=== PATIENT | female | born 1990 | race Caucasian/White ===

== ENCOUNTER 2016-04-06 08:41 | Inpatient (IN) | payer OTHER ==
[~2016-04-06] VITALS: Ht 157.5 cm; Wt 93.2 kg
[~2016-04-06 08:41] MED LIST: ACET-1256 PO; ONDA4TAB10 SL; PRENTAB26 PO
[2016-04-07] MEDS ORDERED: LACTATED RINGER'S 1000ML 1,000 ML IV PRN (09:42)
[2016-04-07] MEDS ORDERED: ONDANSETRON INJ 2 MG/ML 2 ML VIAL IV PRN (09:45)
[2016-04-07] MEDS ORDERED: DINOPROSTONE 10 MG INSERT PV ONE (10:00)
[2016-04-07] MEDS: LACTATED RINGER'S 1000ML 1,000 ML IV SCH ×2 (10:04→17:01)
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
[2016-04-07 10:41] LABS: MEAN CELL VOLUME 87.4 fL (80-100); MEAN CORPUSCULAR HEMOGLOBIN 29.4 pg (25-34); MEAN CORPUSCULAR HGB CONC 33.6 g/dl (32-36); MEAN PLATELET VOLUME 10.9 fL (7.4-10.4); PLATELET COUNT 270 K/uL (130-400); RED BLOOD COUNT 4.12 M/uL (4.2-5.4); WHITE BLOOD COUNT 19.14 K/uL (4.8-10.8)
[2016-04-07 14:24] VITALS: Ht 157.5 cm; Wt 93.2 kg
[2016-04-08] MEDS ORDERED: LACTATED RINGER'S 1000ML 500 ML IV PRN ×2 (00:57→05:10)
[2016-04-08] MEDS ORDERED: BUTORPHANOL TARTRATE 1 MG/ML VIAL IV PRN (01:00)
[2016-04-08] MEDS ORDERED: OXYTOCIN 30 UNITS/500ML NSS IV PRN ×2 (01:00→17:30)
[2016-04-08] MEDS: LACTATED RINGER'S 1000ML 1,000 ML IV SCH ×3 (01:05→15:48)
[2016-04-08] MEDS ORDERED: EpHEDrine SULFATE INJ 50 MG/ML AMP ONE (04:20)
[2016-04-08] MEDS ORDERED: BUPIVACAINE 0.25% 30 ML VIAL ONE (04:20)
[2016-04-08] MEDS ORDERED: FENTANYL 2MCG/ML ROPIV 1.25MG/ML 100ML BAG EPI ONE (04:20)
[2016-04-08] MEDS ORDERED: FENTANYL CITRATE INJ 50 MCG/1 ML 2 ML VIAL ONE (04:21)
[2016-04-08] MEDS ORDERED: NALBUPHINE HCL INJ 10 MG/ML AMP IV PRN (05:15)
[2016-04-08] MEDS ORDERED: ONDANSETRON INJ 2 MG/ML 2 ML VIAL IV PRN (05:15)
[2016-04-08] MEDS ORDERED: DiphenhydrAMINE HCL 50 MG/ML VIAL IV PRN (05:15)
[2016-04-08] MEDS ORDERED: EpHEDrine SULFATE INJ 50 MG/ML AMP IV PRN (05:15)
[2016-04-08] MEDS ORDERED: NALOXONE HCL INJ 0.4 MG/1 ML VIAL/CARP IV PRN (05:15)
[2016-04-08] MEDS: FENTANYL 2MCG/ML ROPIV 1.25MG/ML 100ML BAG EPI PRN ×2 (07:10→12:42)
--- NOTE | 2016-04-08 07:58 | Progress Note ---
Progress Note cervix /-3 FHT Cat 1 continue oxytocin
--- NOTE | 2016-04-08 12:40 | Progress Note ---
Progress Note CERVIX /-3 T Cat 1
--- NOTE | 2016-04-08 15:30 | Progress Note ---
Progress Note cervix fully dilated/-1 FHT Cat 1
[2016-04-08] MEDS ORDERED: SUPERCREAM 0.870 % 15GM JAR EXT PRN (17:15)
[2016-04-08] MEDS ORDERED: MEASLES, MUMPS & RUBELLA VIRUS VIAL SQ. ONE (17:15)
[2016-04-08] MEDS ORDERED: ACETAMINOPHEN/CODEINE 300/30MG TAB PO PRN (17:15)
[2016-04-08] MEDS ORDERED: OXYCODONE/ACETAMINOPHEN 5-325 TAB PO PRN (17:15)
[2016-04-08] MEDS ORDERED: DIPHTHERIA/TETANUS/PERTUSSIS 0.5 ML SYR/VIAL IM. ONE (17:15)
[2016-04-08] MEDS ORDERED: ACETAMINOPHEN 325 MG TAB PO PRN (17:15)
[2016-04-08] MEDS ORDERED: HYDROCORTISONE ACETATE 25 MG SUPP PR PRN (17:15)
[2016-04-08] MEDS ORDERED: LANOLIN OINT EXT PRN ×2 (17:15)
--- NOTE | 2016-04-08 17:15 | Progress Note ---
Progress Note Delivery Note live male over intact perineum with CANx1 reduced at delivery. Apgars 8/9 with weight pending. Delayed cord clamping followed by cord blood and spontaneous delivery of intact placenta. Small 1st degree vaginal laceration repaired with 3/0 Vicryl suture. EBL 200 ml. Final sponge, instrument and needle count are correct. Mom and baby stable.
[2016-04-08] MEDS ORDERED: LACTATED RINGER'S 1000ML 1,000 ML IV SCH (18:00)
--- NOTE | 2016-04-08 18:59 | Anesthesiology Progress Note ---
Anesthesia Post Op Note Date & Time Apr 08, 2016 at 18:58 Vital Signs Pain Intensity: 0.0 Notes Mental Status: alert / awake / arousable, participated in evaluation Pt Amnestic to Procedure: Yes Nausea / Vomiting: adequately controlled Pain: adequately controlled Airway Patency, RR, SpO2: stable & adequate BP & HR: stable & adequate Hydration State: stable & adequate Anesthetic Complications: no major complications apparent
[2016-04-08] MEDS: IBUPROFEN 600 MG TAB PO PRN (19:56)
[2016-04-08 20:00] VITALS: BP 124/80; PULSE 95; TEMP 36.8; O2SAT 98
[2016-04-08] MEDS: ACETAMINOPHEN/CODEINE 300/30MG TAB PO PRN (21:25)
[2016-04-09 00:26] VITALS: BP 118/74; PULSE 91; TEMP 36.6
[2016-04-09] MEDS: IBUPROFEN 600 MG TAB PO PRN ×5 (00:26→23:07)
[2016-04-09] MEDS: BENZOCAINE 20% AER SPR 82.5 GM CAN EXT PRN (04:06)
[2016-04-09 04:16] VITALS: BP 113/71; PULSE 75; TEMP 36.9
[2016-04-09] MEDS: ACETAMINOPHEN/CODEINE 300/30MG TAB PO PRN ×2 (04:17→23:08)
[2016-04-09 07:44] LABS: HEMATOCRIT 33.7 % (37-47)
[2016-04-09 07:45] VITALS: BP 117/70; PULSE 74; TEMP 36.4
--- NOTE | 2016-04-09 08:33 | OB/GYN Progress Note ---
FOOD SERVICES COORDINATOR Progress Note Date of Service Apr 09, 2016. Subjective conversation w/ patient, physical exam Ambulation: ambulating normally Voiding: no voiding problems Passing Gas: Yes Diet Tolerance: Regular Diet Lochia: Moderate Feeding Type: Breast Feeding Pain: 2/10 Notes: Doing well. Pain is mostly in her back but relieved with pain medicine. Ambulating without difficulty. Lochia moderate. without difficulty. Objective Vital Signs Date Time Temp Pulse Resp B/P Pulse Ox O2 Delivery O2 Flow Rate FiO2 04/09/16 04:16 36.9 75 18 113/71 Room Air 04/09/16 04:16 36.9 75 18 113/71 Room Air 04/09/16 00:26 Room Air 04/09/16 00:26 36.6 91 18 118/74 Room Air 04/09/16 00:26 36.6 91 18 118/74 Room Air 04/09/16 00:26 Room Air 04/08/16 20:00 98 Room Air 04/08/16 20:00 36.8 95 18 124/80 98 Room Air 04/08/16 20:00 36.8 95 18 124/80 98 Room Air 04/08/16 20:00 98 Room Air Physical Exam General Appearance: WELL-APPEARING Respiratory/Chest: chest non-tender, lungs clear Cardiovascular: regular rate, rhythm Abdomen: normal bowel sounds, soft Fundus: Firm Extremities: normal range of motion, non-tender, no calf tenderness Laboratory Results Last 24 Hours Test 04/09/16 07:30 Hemoglobin 10.9 g/dL Hematocrit 33.7 % Assessment and Plan Post- Day Number: 1 Continue Routine Care: -Continue routine care -Anticipate d/c home tomorrow AM
[2016-04-09] MEDS: FERROUS SULFATE 325 MG TAB PO SCH (08:58)
[2016-04-09] MEDS: PRENATAL VITAMIN TAB PO SCH (08:58)
[2016-04-09 13:15] VITALS: BP 113/72; PULSE 89; TEMP 36.9
[2016-04-09 15:50] VITALS: BP 121/68; PULSE 81; TEMP 37.1
[2016-04-09] MEDS ORDERED: BISACODYL 5 MG TABEC PO SCH (20:00)
[2016-04-10 00:30] VITALS: BP 118/77; PULSE 87; TEMP 37.2
[2016-04-10] MEDS: IBUPROFEN 600 MG TAB PO PRN ×2 (04:49→13:03)
[2016-04-10] MEDS: ACETAMINOPHEN/CODEINE 300/30MG TAB PO PRN (04:50)
[2016-04-10] MEDS ORDERED: ACET-749 PO (06:40)
[2016-04-10] MEDS ORDERED: MTR600X PO (06:40)
--- NOTE | 2016-04-10 06:41 | Discharge Instructions ---
Discharge Instructions Admission Reason for Admission: Induction Discharge Discharge Diagnosis / Problem: Vaginal Delivery Discharge Goals Goal(s): Routine recovery after delivery Medications Continue Dispensed Medications: supercream, dermaplast, tucks, lansinoh Activity Recommendations Activity Limitations: per Instructions/Follow-up section . Instructions / Follow-Up Instructions / Follow-Up ACTIVITY RECOMMENDATIONS: * Gradual return to full activity over the next 2-3 weeks. * No lifting - nothing heavier than baby over the next 2-3 weeks. * Do not engage in vigorous exercise, sexual activity or sports until cleared by your physician. * Do not drive or operate any motorized equipment until cleared by your physician. * You may shower/bathe daily. BREAST CARE: If you are not breast feeding: * Wear a supportive bra 24 hours a day for one to two weeks. * Avoid stimulating your breasts and nipples as much as possible during the first few weeks after delivery. * When taking a shower, have the warm water hit your back, not breasts. * When your breasts feel full, apply ice packs. Usually three to four times a day helps ease the discomfort. * Take a mild pain medication (Tylenol/Motrin) when you are uncomfortable. If breast feeding: * Use breast milk to lubricate nipples. Lansinoh cream may be used for sore nipples. You do not need to remove cream prior to breast feeding. If using a different brand of cream, check the label for directions regarding removal of cream prior to nursing. * Wear a supportive bra. * If having problems with breasts or breast feeding, call a business risk consultant or your health care provider. EPISIOTOMY CARE: After delivery, if you have an episiotomy (stitches), the following steps will ease discomfort and aid healing. * For the first 24 hours after delivery, place ice packs next to your episiotomy to help reduce swelling. * After the first 24 hour-period, sitz baths, either portable or in the tub, are suggested. A shower with a shower arm sprayed over the episiotomy may be comforting. * Rosalie care should be done after each voiding and bowel movement. Squirt warm water from a plastic bottle over the perineum (region of the body between the anus and urinary opening) and pat dry. * Use Dermoplast to ease discomfort. Shake container. [place] directly over the episiotomy. * Place a Tucks on a clean sanitary pad next to your episiotomy. OVER THE COUNTER MEDICATION: * For discomfort or pain, you may use Acetaminophen (Tylenol), Ibuprofen (Advil ), or Naproxen (Aleve) following the package directions. * For constipation you may use Colace following the package directions. SPECIAL CARE INSTRUCTIONS: When you are discharged from the hospital, it is important for you to follow the instructions listed below: * During the first week at home, you should be able to care for yourself and your baby. In addition, the usual light household activities are encouraged. * Limit your activities to the way you feel. Do not try to clean the house or move furniture. Be sensible. * If you actively engage in sports and have done so up until the time of your delivery, you may resume these activities as soon as you feel able. This may take up to one month or even longer. Use good judgment. * Continue to take your vitamins for at least six weeks after the of your baby. * Your diet need not be limited unless you were on a special diet before your delivery. Breast-feeding mothers need around 2500 calories per day and at least 64-80 ounces of fluid per day (8 to 10 glasses). * You should eat foods from the four major food groups. Crash diets or fad diets are to be avoided. Eating lean meats, fresh fruits and vegetables, low-fat dairy products, high fiber foods and a regular exercise program, will help you get back to your pre- weight without putting your health at risk. * Constipation is sometimes a problem after delivery. Take a mild laxative as needed. If breast feeding, Milk of Magnesia is acceptable to use. You may use a suppository or Fleets enema if no episiotomy. * A daily shower or tub bath is suggested. Be sure to thoroughly and gently dry the perineum. * A bloody vaginal discharge will usually continue until around four weeks post . A small amount of bleeding may continue for as long as six weeks. Vaginal discharge changes from the bright red bleeding after delivery to pink then brownish and finally yellowish-pink before becoming white and disappearing. * Bleeding may increase with activity. Your first period may come in 4-8 weeks. If you are breast feeding, your period may be delayed even longer. * Celeste (sex) can begin whenever both you and your partner feel comfortable and do not have any form of genital infection. It is recommended that you wait until after your return appointment and discuss with your physician. If you have questions, please talk to your health care practitioner. A condom should be used to prevent infection and . * Foreplay, gentle intercourse and lubrication is very important the first several times to prevent pain. A water-based lubricant such as K-Y jelly or Astroglide may be used. * Tampons may be used six weeks after delivery. * Douching should be avoided for 6 weeks after delivery. * If you have RH negative blood and your baby is RH positive, you will receive RHOGAM by injection prior to discharge. The nurse will give you a card to keep with you that has the date and place that you received RHOGAM after delivery. * During your care, you had a Rubella screen done to check for the presence of rubella antibodies in your blood. If your test was negative, you will receive a Rubella vaccine prior to discharge. This vaccine may cause a fever, soreness at the injection site and flu-like symptoms. If these symptoms persist, notify your health care practitioner. is not advised for three months after a Rubella vaccine. There is a higher chance of having a baby with defects if conceived within three months of getting the vaccine. * If you were discharged 24 hours from delivery or before 48 hours: Visiting nurses will come to your home 48 hours after discharge to assess you and your baby. The visiting nurse will meet with you while you are in the hospital to arrange a time and get directions to your home. * Verbalizes understanding of car seat law as reviewed with patient nursing. * Car Seat hand-out given and reviewed with patient by nursing. * Shaken baby information reviewed with patient by nursing. Call you doctor if: * Heavy bleeding (saturating several pads an hour) or passing clots the size of your fist. * A fever >101 degrees F (38.3 degrees C) on two occasions four hours apart and/or chills. * Unusual pain in the pelvic or vaginal areas. * "Baby Blues" lasting longer than two weeks. If you have any questions or concerns, call your health care practitioner at . FOLLOW-UP VISIT: * Please call the office at to schedule a 6 week examination. It is important you keep this appointment. * It is important for you to make arrangements for either yearly or twice yearly check-ups thereafter. Current Hospital Diet Patient's current hospital diet: Regular OB Diet Discharge Diet Recommended Diet: Regular OB Diet Pending Studies Studies pending at discharge: no Medical Emergencies . Who to Call and When: Medical Emergencies: If at any time you feel your situation is an emergency, please call 911 immediately. . Non-Emergent Contact Non-Emergency issues call your: Primary Care Provider, Bonding Supervisor . . "Provider Documentation" section prepared by David Lanier. VTE Core Measure Inpt VTE Proph given/why not?: Treatment not indicated
--- NOTE | 2016-04-10 06:43 | OB/GYN Progress Note ---
IMPACT HAMMER OPERATOR Progress Note Date of Service Apr 10, 2016. Subjective conversation w/ patient, physical exam Ambulation: ambulating normally Voiding: no voiding problems Passing Gas: Yes Diet Tolerance: Regular Diet Lochia: Moderate Feeding Type: Breast Feeding Pain: 05/27 Notes: Doing well. Pain well controlled. Would like to go home today. Objective Vital Signs Date Time Temp Pulse Resp B/P Pulse Ox O2 Delivery O2 Flow Rate FiO2 04/10/16 00:30 37.2 87 18 118/77 Room Air 04/10/16 00:30 Room Air 04/09/16 15:50 Room Air 04/09/16 15:50 37.1 81 18 121/68 Room Air 04/09/16 13:15 36.9 89 18 113/72 Room Air 04/09/16 07:45 36.4 74 18 117/70 Room Air 04/09/16 07:45 Room Air Physical Exam General Appearance: WELL-APPEARING Respiratory/Chest: chest non-tender, lungs clear Cardiovascular: regular rate, rhythm Abdomen: normal bowel sounds, soft Fundus: Firm, Non-Tender Extremities: normal range of motion, non-tender, no calf tenderness Laboratory Results Last 24 Hours Test 04/09/16 07:30 Hemoglobin 10.9 g/dL Hematocrit 33.7 % Assessment and Plan Post- Day Number: 2 Continue Routine Care: -D/C home today -F/U in 6 weeks
[2016-04-10] MEDS ORDERED: BISACODYL 10 MG SUPP PR PRN (07:00)
[2016-04-10 07:35] VITALS: BP 125/61; PULSE 95; TEMP 36.8; O2SAT 98
[2016-04-10] MEDS: PRENATAL VITAMIN TAB PO SCH (08:05)
[2016-04-10] MEDS: FERROUS SULFATE 325 MG TAB PO SCH (08:05)
[2016-04-10] MEDS: BENZOCAINE 20% AER SPR 82.5 GM CAN EXT PRN (13:04)
[2016-04-10 14:00] VITALS: BP_DIAS 61; PULSE 95; TEMP 36.8
== END 2016-04-10 14:15 | disposition home or self-care (01) | DRG 775 ==
LOC: C.LD 04-07 09:30 → C.OBG 04-08 19:53
PROVIDERS: ADMIT Obstetrics & Gynecology; ATTEND Obstetrics & Gynecology
PROC: 10E0XZZ Delivery of Products of Conception, External Approach (ICD-10-PCS; principal; 2016-04-08)
PROC: 0WQNXZZ Repair Female Perineum, External Approach (ICD-10-PCS; principal; 2016-04-08)
DX: O71.4 Obstetric high vaginal laceration alone (principal); Z3A.40 40 weeks gestation of pregnancy; O99.334 Smoking (tobacco) complicating childbirth; G89.29 Other chronic pain; Z37.0 Single live birth

== ENCOUNTER 2017-04-21 21:15 | Outpatient (CLI) | payer OTHER ==
[~2017-04-21] VITALS: Ht 157.5 cm; Wt 107.4 kg
[~2017-04-21 21:15] MED LIST changes: -ACET-1256 PO; +ACET-749 PO; +MTR600X PO; -ONDA4TAB10 SL
[2017-04-21] MEDS ORDERED: ONDA4TAB46 PO (22:21)
[2017-04-21 22:24] VITALS: Ht 157.5 cm; Wt 107.4 kg
[2017-04-21] MEDS ORDERED: ACETAMINOPHEN/CODEINE 300/30MG TAB PO ONE (22:30)
[2017-04-22] MEDS ORDERED: ACET-749 PO (01:41)
--- NOTE | 2017-04-22 01:43 | Discharge Instructions ---
Discharge Instructions Date of Service Apr 22, 2017. Admission Reason for Admission: Back Pain Discharge Discharge Diagnosis / Problem: back pain Discharge Goals Goal(s): Continuing OB care Activity Recommendations Activity Limitations: as noted below ACTIVITY RECOMMENDATIONS: See Labor Sheet. SPECIAL CARE INSTRUCTIONS: Call Doctor if: * Regular contractions every 5 minutes or greater than contractions in one hour. * Bleeding * Water breaks or is leaking * Decreased movement * Fever >100.4 degrees F * Pain not relieved by routine measures or pain medication ordered. FOLLOW UP VISIT: Return to Labor and Delivery on for /call for appointment time . Follow-up Visit with: When: . Current Hospital Diet Patient's current hospital diet: Discharge Diet Recommended Diet: Regular Diet Pending Studies Studies pending at discharge: no Medical Emergencies . Who to Call and When: Medical Emergencies: If at any time you feel your situation is an emergency, please call 911 immediately. . Non-Emergent Contact Non-Emergency issues call your: Specialist . . "Provider Documentation" section prepared by Alvin Jessica. . VTE Core Measure Inpt VTE Proph given/why not?: Treatment not indicated
[2017-04-22] MEDS ORDERED: TYLENOL #3 HOME PACK PO ONE (02:00)
== END 2017-04-22 02:00 | disposition home or self-care (01) ==
LOC: C.OPB 21:15 → C.LD 21:15 → C.OPB 04-22 02:00
PROVIDERS: ATTEND Obstetrics & Gynecology
DX: O99.89 Other specified diseases and conditions complicating pregnancy, childbirth and the puerperium (principal); M54.9 Dorsalgia, unspecified; Z3A.00 Weeks of gestation of pregnancy not specified

== ENCOUNTER 2017-06-26 10:10 | Inpatient (IN) | payer OTHER ==
[~2017-06-26] VITALS: Ht 157.5 cm; Wt 109.1 kg
[~2017-06-26 10:10] MED LIST changes: -MTR600X PO; +ONDA4TAB46 PO
[2017-06-26] MEDS ORDERED: LACTATED RINGER'S 1000ML 1,000 ML IV PRN (11:32)
--- NOTE | 2017-06-26 11:40 | Progress Note ---
Progress Note Date of Service Jun 26, 2017. Progress Note Admit Note 26 F P1001 at 39.4 weeks admitted for induction of labor. Patient was breech last week and converted to vertex and is being induced before she is breech again. GBS is negative. Class 3 obesity. Cervix is closed/50/-3/vertex/ posterior/firm/intact. FHT CAt 1 with no contractions. Bedside ultrasound confirms vertex. Will use Cervidil to ripen cervix.
[2017-06-26 12:09] LABS: HEMATOCRIT 35.8 % (37-47); HEMOGLOBIN 11.7 g/dL (12.0-16.0); MEAN CORPUSCULAR HEMOGLOBIN 27.5 pg (25-34); MEAN CORPUSCULAR HGB CONC 32.7 g/dl (32-36); MEAN PLATELET VOLUME 10.9 fL (7.4-10.4); PLATELET COUNT 229 K/uL (130-400); RED CELL DISTRIBUTION WIDTH CV 15.5 % (11.5-14.5); RED CELL DISTRIBUTION WIDTH SD 47.3 fL (36.4-46.3); WHITE BLOOD COUNT 12.42 K/uL (4.8-10.8)
[2017-06-26] MEDS ORDERED: DINOPROSTONE 10 MG INSERT PV ONE (12:15)
[2017-06-26 12:41] VITALS: Ht 157.5 cm; Wt 109.1 kg
[2017-06-26] MEDS ORDERED: CALC500C3 (13:32)
[2017-06-26] MEDS ORDERED: ACETAMINOPHEN 500 MG TAB PO PRN (23:45)
[2017-06-27] MEDS ORDERED: MISOPROSTOLTAB 50 MCG TAB PO ONE (01:00)
[2017-06-27] MEDS ORDERED: LACTATED RINGER'S 1000ML 500 ML IV PRN ×2 (06:33→11:39)
[2017-06-27] MEDS ORDERED: OXYTOCIN 30 UNITS/500ML NSS IV PRN ×2 (06:45→20:00)
[2017-06-27] MEDS: LACTATED RINGER'S 1000ML 1,000 ML IV SCH ×3 (08:40→15:25)
[2017-06-27] MEDS ORDERED: BUPIVACAINE 0.25% 30 ML VIAL ONE ×2 (11:18→18:00)
[2017-06-27] MEDS ORDERED: EpHEDrine SULFATE INJ 50 MG/ML AMP ONE (11:18)
[2017-06-27] MEDS ORDERED: FENTANYL CITRATE INJ 50 MCG/1 ML 2 ML VIAL ONE (11:19)
[2017-06-27] MEDS ORDERED: FENTANYL 2MCG/ML ROPIV 1.25MG/ML 100ML BAG EPI ONE (11:20)
[2017-06-27] MEDS ORDERED: NALOXONE HCL INJ 1 MG in SODIUM CHLORIDE 0.9% 1000ML 1,000 ML IV PRN (11:39)
[2017-06-27] MEDS ORDERED: NALOXONE HCL INJ 0.4 MG/1 ML VIAL/CARP IV PRN (11:45)
[2017-06-27] MEDS ORDERED: NALBUPHINE HCL INJ 10 MG/ML AMP IV PRN (11:45)
[2017-06-27] MEDS ORDERED: EpHEDrine SULFATE INJ 50 MG/ML AMP IV PRN (11:45)
[2017-06-27] MEDS ORDERED: ONDANSETRON INJ 2 MG/ML 2 ML VIAL IV PRN (11:45)
[2017-06-27] MEDS ORDERED: DiphenhydrAMINE HCL 50 MG/ML VIAL IV PRN (11:45)
[2017-06-27] MEDS: FENTANYL 2MCG/ML ROPIV 1.25MG/ML 100ML BAG EPI PRN ×2 (15:01→19:09)
[2017-06-27] MEDS ORDERED: BENZOCAINE 20% AER SPR 82.5 GM CAN EXT PRN (20:00)
[2017-06-27] MEDS ORDERED: SUPERCREAM 0.870 % 15GM JAR EXT PRN (20:00)
[2017-06-27] MEDS ORDERED: OXYCODONE/ACETAMINOPHEN 5-325 TAB PO PRN (20:00)
[2017-06-27] MEDS ORDERED: HYDROCORTISONE ACETATE 25 MG SUPP PR PRN (20:00)
[2017-06-27] MEDS ORDERED: LANOLIN OINT EXT PRN (20:00)
[2017-06-27] MEDS ORDERED: ACETAMINOPHEN 325 MG TAB PO PRN (20:00)
[2017-06-27] MEDS ORDERED: DIPHTHERIA/TETANUS/PERTUSSIS 0.5 ML SYR/VIAL IM. ONE (20:00)
--- NOTE | 2017-06-27 20:59 | Anesthesia Procedure Note ---
Anesthesia Epidural Removal Nt Date & Time Jun 27, 2017 at 20:59 Vital Signs Pain Intensity: 7.0 Notes Mental Status: alert / awake / arousable, participated in evaluation Nausea / Vomiting: adequately controlled Pain: adequately controlled Airway Patency, RR, SpO2: stable & adequate BP & HR: stable & adequate Hydration State: stable & adequate Neuraxial Anesthesia: was administered, sensory block is resolving Anesthetic Complications: no major complications apparent, pt satisfied with anesthetic care Epidural: removed without complications, with tip intact
[2017-06-27] MEDS: IBUPROFEN 600 MG TAB PO PRN (21:13)
--- NOTE | 2017-06-27 22:28 | DELIVERY SUMMARY ---
DATE OF OPERATION: 06/27/2017 TIME OF DELIVERY: 1939. DELIVERY OF PLACENTA: 1942. DELIVERY NOTE: The patient is a 26-year-old 3, para 1 at 39 weeks and 5 days' gestation, who was admitted to labor and delivery on the afternoon of 06/26/2017 for a scheduled induction of labor secondary to unstable lie and class III obesity. Baby was breech 2 weeks ago and was found to be cephalic at the last visit. She was scheduled induction for 06/26/2017. She was given Cervidil for cervical ripening on admission and Cytotec. On the morning of 06/27/2017, oxytocin was began for labor augmentation. She was received an epidural for anesthesia. Artificial rupture of membranes was performed at 1351 with clear amniotic fluid noted. She reached complete dilation at 1754 and she pushed to delivery at 1940. She delivered a viable male infant in the right occiput anterior position to an intact perineum. Nuchal cord x1 was reduced at delivery. The baby was delivered and placed on the patient's abdomen. Cord was clamped x2 and cut. Apgars were 9 at 1 minute, 10 at 5 minutes. Please see nursing notes for further baby assessment. Cord blood was then obtained and an intact placenta with 3-vessel cord was delivered at 194. Oxytocin infusion was then begun. The lower uterine segment and vagina was cleared of any blood clots and debris. Exploration of the perineum noted a right periurethral laceration, which was repaired with 3-0 Vicryl suture in continuous running fashion. Excellent hemostasis was noted. No other lacerations were seen. Estimated blood loss was 200 mL. All sponge, instrument, and needle counts were found to be correct x2. Both the patient and baby tolerated the delivery well and were in recovery with stable vital signs. I attest to the content of the Intraoperative Record and any orders documented therein. Any exception s are noted below.
[2017-06-27 23:45] VITALS: BP 118/68; PULSE 97; TEMP 37; O2SAT 98
[2017-06-28] MEDS: ACETAMINOPHEN/CODEINE 300/30MG TAB PO PRN ×4 (01:33→20:21)
[2017-06-28 04:30] VITALS: BP 103/57; PULSE 92; TEMP 36.8; O2SAT 98
[2017-06-28 07:25] VITALS: BP 103/58; PULSE 109; TEMP 37; O2SAT 97
[2017-06-28 07:43] LABS: HEMATOCRIT 34.6 % (37-47); HEMOGLOBIN 11.1 g/dL (12.0-16.0)
[2017-06-28] MEDS: FERROUS SULFATE 325 MG TAB PO SCH (08:34)
[2017-06-28] MEDS: PRENATAL VITAMIN TAB PO SCH (08:35)
[2017-06-28] MEDS: DOCUSATE SODIUM 100 MG CAP PO SCH ×2 (08:35→20:20)
[2017-06-28] MEDS: IBUPROFEN 600 MG TAB PO PRN ×4 (08:37→23:52)
[2017-06-28] MEDS: ONDANSETRON 4 MG TAB PO PRN (08:48)
--- NOTE | 2017-06-28 11:53 | OB/GYN Progress Note ---
ROOM SERVICE FOOD SERVER Progress Note Date of Service Jun 28, 2017. Subjective conversation w/ patient, physical exam Ambulation: ambulating normally Voiding: no voiding problems Passing Gas: Yes Diet Tolerance: Regular Diet Lochia: Moderate Feeding Type: Breast Feeding Review of Systems Constitutional: No fever, No chills, No sweats, No weight loss, No weakness, No fatigue, No problem reported Respiratory: No cough, No sputum, No wheezing, No shortness of breath, No dyspnea on exertion, No dyspnea at rest, No hemoptysis, No problem reported Cardiac: No chest pain, No orthopnea, No PND, No edema, No claudication, No palpitations, No problem reported Breast: No see HPI, No breast lump, No change in shape, No nipple discharge, No breast pain, No problem reported Abdomen: No pain, No nausea, No vomiting, No diarrhea, No constipation, No GI bleeding, No problem reported Female : No see HPI, No dysuria, No urinary frequency, No hematuria, No incontinence, No abnormal vaginal bleeding, No vaginal discharge, No problem reported Objective Vital Signs Date Time Temp Pulse Resp B/P (MAP) Pulse Ox O2 Delivery O2 Flow Rate FiO2 06/28/17 07:25 37.0 109 16 103/58 (73) 97 Room Air 06/28/17 07:25 Room Air 06/28/17 04:30 36.8 92 18 103/57 (72) 98 Room Air 06/27/17 23:45 37.0 97 18 118/68 (85) 98 Room Air 06/27/17 23:45 98 Room Air Physical Exam General Appearance: WELL-APPEARING, WD/WN, NO APPARENT DISTRESS Respiratory/Chest: chest non-tender, lungs clear, normal breath sounds Cardiovascular: regular rate, rhythm, no edema, no gallop Abdomen: normal bowel sounds, non tender, soft Fundus: Firm Extremities: normal range of motion, non-tender, normal inspection Laboratory Results Last 24 Hours Test 06/28/17 07:11 Hemoglobin 11.1 g/dL Hematocrit 34.6 % Assessment and Plan Day Number: 1 Continue Routine Care: PPD #1 pt doing well Anticipate disch tomorrow
[2017-06-28 12:10] VITALS: BP 136/75; PULSE 94; TEMP 37; O2SAT 98
[2017-06-28 16:00] VITALS: BP 122/75; PULSE 86; TEMP 36.8
[2017-06-28] MEDS ORDERED: BISACODYL 5 MG TABEC PO SCH (20:00)
[2017-06-28 23:55] VITALS: BP 120/70; PULSE 88; TEMP 36.5; O2SAT 98
[2017-06-29] MEDS: ACETAMINOPHEN/CODEINE 300/30MG TAB PO PRN ×2 (05:10→13:57)
[2017-06-29] MEDS: IBUPROFEN 600 MG TAB PO PRN ×3 (05:10→13:57)
[2017-06-29 06:49] LABS: HEMATOCRIT 33.3 % (37-47); HEMOGLOBIN 10.6 g/dL (12.0-16.0); MEAN CELL VOLUME 85.4 fL (80-100); MEAN CORPUSCULAR HEMOGLOBIN 27.2 pg (25-34); MEAN CORPUSCULAR HGB CONC 31.8 g/dl (32-36); MEAN PLATELET VOLUME 10.3 fL (7.4-10.4); PLATELET COUNT 172 K/uL (130-400); RED CELL DISTRIBUTION WIDTH CV 15.9 % (11.5-14.5); RED CELL DISTRIBUTION WIDTH SD 49.3 fL (36.4-46.3); WHITE BLOOD COUNT 12.51 K/uL (4.8-10.8)
[2017-06-29] MEDS ORDERED: BISACODYL 10 MG SUPP PR PRN (07:00)
[2017-06-29 08:00] VITALS: BP 113/59; PULSE 83; TEMP 36.4
[2017-06-29] MEDS: PRENATAL VITAMIN TAB PO SCH (09:00)
[2017-06-29] MEDS: FERROUS SULFATE 325 MG TAB PO SCH (09:00)
[2017-06-29] MEDS: DOCUSATE SODIUM 100 MG CAP PO SCH (09:00)
[2017-06-29] MEDS: ONDANSETRON 4 MG TAB PO PRN (09:03)
--- NOTE | 2017-06-29 10:01 | OB/GYN Progress Note ---
BUILDING MOVER Progress Note Date of Service Jun 29, 2017. Subjective conversation w/ patient, physical exam Ambulation: ambulating normally Voiding: no voiding problems Passing Gas: Yes Diet Tolerance: Regular Diet Lochia: Small Feeding Type: Breast Feeding Objective Vital Signs Date Time Temp Pulse Resp B/P (MAP) Pulse Ox O2 Delivery O2 Flow Rate FiO2 06/29/17 08:00 36.4 83 18 113/59 (77) Room Air 06/28/17 23:55 36.5 88 18 120/70 (87) 98 Room Air 06/28/17 23:55 Room Air 06/28/17 16:00 36.8 86 20 122/75 (91) Room Air 06/28/17 16:00 Room Air 06/28/17 12:10 37.0 94 16 136/75 (95) 98 Room Air Physical Exam General Appearance: WELL-APPEARING, NO APPARENT DISTRESS, other (post depression) Abdomen: non tender, soft, no organomegaly Fundus: Firm Extremities: non-tender, normal inspection, no pedal edema Laboratory Results Last 24 Hours Test 06/29/17 06:20 White Blood Count 12.51 K/uL Red Blood Count 3.90 M/uL Hemoglobin 10.6 g/dL Hematocrit 33.3 % Mean Corpuscular Volume 85.4 fL Mean Corpuscular Hemoglobin 27.2 pg Mean Corpuscular Hemoglobin Concent 31.8 g/dl RDW Standard Deviation 49.3 fL RDW Coefficient of Variation 15.9 % Platelet Count 172 K/uL Mean Platelet Volume 10.3 fL Assessment and Plan Post- Day Number: 2 Continue Routine Care: Tent d/c pending psych concult for post- depression
[2017-06-29] MEDS ORDERED: MTR600X PO (10:04)
--- NOTE | 2017-06-29 10:06 | Discharge Instructions ---
Discharge Instructions Date of Service Jun 29, 2017. Admission Reason for Admission: Induction Discharge Discharge Diagnosis / Problem: term delivered/post depression Discharge Goals Goal(s): Routine recovery after delivery Activity Recommendations Activity Limitations: as noted below Lifting Limitations: no more than 10 pounds Exercise/Sports Limitations: none May Resume Sexual Activity: after follow-up appointment Shower/Bathe: no limitations Driving or Machine Use: resume 3 days after discharge . Instructions / Follow-Up Instructions / Follow-Up ACTIVITY RECOMMENDATIONS: * Gradual return to full activity over the next 2-3 weeks. * No lifting - nothing heavier than baby over the next 2-3 weeks. * Do not engage in vigorous exercise, sexual activity or sports until cleared by your physician. * Do not drive or operate any motorized equipment until cleared by your physician. * You may shower/bathe daily. BREAST CARE: If you are not breast feeding: * Wear a supportive bra 24 hours a day for one to two weeks. * Avoid stimulating your breasts and nipples as much as possible during the first few weeks after delivery. * When taking a shower, have the warm water hit your back, not breasts. * When your breasts feel full, apply ice packs. Usually three to four times a day helps ease the discomfort. * Take a mild pain medication (Tylenol/Motrin) when you are uncomfortable. If breast feeding: * Use breast milk to lubricate nipples. Lansinoh cream may be used for sore nipples. You do not need to remove cream prior to breast feeding. If using a different brand of cream, check the label for directions regarding removal of cream prior to nursing. * Wear a supportive bra. * If having problems with breasts or breast feeding, call a corporate travel consultant or your health care provider. EPISIOTOMY CARE: After delivery, if you have an episiotomy (stitches), the following steps will ease discomfort and aid healing. * For the first 24 hours after delivery, place ice packs next to your episiotomy to help reduce swelling. * After the first 24 hour-period, sitz baths, either portable or in the tub, are suggested. A shower with a shower arm sprayed over the episiotomy may be comforting. * Rosalie care should be done after each voiding and bowel movement. Squirt warm water from a plastic bottle over the perineum (region of the body between the anus and urinary opening) and pat dry. * Use Dermoplast to ease discomfort. Shake container. [place] directly over the episiotomy. * Place a Tucks on a clean sanitary pad next to your episiotomy. OVER THE COUNTER MEDICATION: * For discomfort or pain, you may use Acetaminophen (Tylenol), Ibuprofen (Advil ), or Naproxen (Aleve) following the package directions. * For constipation you may use Colace following the package directions. SPECIAL CARE INSTRUCTIONS: When you are discharged from the hospital, it is important for you to follow the instructions listed below: * During the first week at home, you should be able to care for yourself and your baby. In addition, the usual light household activities are encouraged. * Limit your activities to the way you feel. Do not try to clean the house or move furniture. Be sensible. * If you actively engage in sports and have done so up until the time of your delivery, you may resume these activities as soon as you feel able. This may take up to one month or even longer. Use good judgment. * Continue to take your vitamins for at least six weeks after the of your baby. * Your diet need not be limited unless you were on a special diet before your delivery. Breast-feeding mothers need around 2500 calories per day and at least 64-80 ounces of fluid per day (8 to 10 glasses). * You should eat foods from the four major food groups. Crash diets or fad diets are to be avoided. Eating lean meats, fresh fruits and vegetables, low-fat dairy products, high fiber foods and a regular exercise program, will help you get back to your pre- weight without putting your health at risk. * Constipation is sometimes a problem after delivery. Take a mild laxative as needed. If breast feeding, Milk of Magnesia is acceptable to use. You may use a suppository or Fleets enema if no episiotomy. * A daily shower or tub bath is suggested. Be sure to thoroughly and gently dry the perineum. * A bloody vaginal discharge will usually continue until around four weeks post . A small amount of bleeding may continue for as long as six weeks. Vaginal discharge changes from the bright red bleeding after delivery to pink then brownish and finally yellowish-pink before becoming white and disappearing. * Bleeding may increase with activity. Your first period may come in 4-8 weeks. If you are breast feeding, your period may be delayed even longer. * [place] (sex) can begin whenever both you and your partner feel comfortable and do not have any form of genital infection. It is recommended that you wait until after your return appointment and discuss with your physician. If you have questions, please talk to your health care practitioner. A condom should be used to prevent infection and . * Foreplay, gentle intercourse and lubrication is very important the first several times to prevent pain. A water-based lubricant such as K-Y jelly or Astroglide may be used. * Tampons may be used six weeks after delivery. * Douching should be avoided for 6 weeks after delivery. * If you have RH negative blood and your baby is RH positive, you will receive RHOGAM by injection prior to discharge. The nurse will give you a card to keep with you that has the date and place that you received RHOGAM after delivery. * During your care, you had a Rubella screen done to check for the presence of rubella antibodies in your blood. If your test was negative, you will receive a Rubella vaccine prior to discharge. This vaccine may cause a fever, soreness at the injection site and flu-like symptoms. If these symptoms persist, notify your health care practitioner. is not advised for three months after a Rubella vaccine. There is a higher chance of having a baby with defects if conceived within three months of getting the vaccine. * If you were discharged 24 hours from delivery or before 48 hours: Visiting nurses will come to your home 48 hours after discharge to assess you and your baby. The visiting nurse will meet with you while you are in the hospital to arrange a time and get directions to your home. * Verbalizes understanding of car seat law as reviewed with patient nursing. * Car Seat hand-out given and reviewed with patient by nursing. * Shaken baby information reviewed with patient by nursing. Call you doctor if: * Heavy bleeding (saturating several pads an hour) or passing clots the size of your fist. * A fever >101 degrees F (38.3 degrees C) on two occasions four hours apart and/or chills. * Unusual pain in the pelvic or vaginal areas. * "Baby Blues" lasting longer than two weeks. If you have any questions or concerns, call your health care practitioner at . FOLLOW-UP VISIT: * Please call the office at to schedule a 6 week examination. It is important you keep this appointment. * It is important for you to make arrangements for either yearly or twice yearly check-ups thereafter. Current Hospital Diet Patient's current hospital diet: Regular OB Diet Discharge Diet Recommended Diet: Regular OB Diet Fluid Restriction: None Procedures Procedures Performed: term preganncy delivered Pending Studies Studies pending at discharge: no Medical Emergencies . Who to Call and When: Medical Emergencies: If at any time you feel your situation is an emergency, please call 911 immediately. . Non-Emergent Contact Non-Emergency issues call your: Primary Care Provider . . "Provider Documentation" section prepared by Ramone Hassan. .
[2017-06-29 12:32] VITALS: BP_DIAS 72; PULSE 95; TEMP 36.6
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
== END 2017-06-29 15:45 | disposition home or self-care (01) | DRG 775 ==
LOC: C.LD 10:10 → EDSTATUS 15:26 → C.OBG 06-27 22:58
PROVIDERS: ADMIT Obstetrics & Gynecology; ATTEND Obstetrics & Gynecology
PROC: 3E0P7GC Introduction of Other Therapeutic Substance into Female Reproductive, Via Natural or Artificial Opening (ICD-10-PCS; 2017-06-26)
PROC: 0UQMXZZ Repair Vulva, External Approach (ICD-10-PCS; principal; 2017-06-27)
PROC: 10E0XZZ Delivery of Products of Conception, External Approach (ICD-10-PCS; principal; 2017-06-27)
DX: O32.0XX0 Maternal care for unstable lie, not applicable or unspecified (principal); Z68.41 Body mass index [BMI] 40.0-44.9, adult; O99.214 Obesity complicating childbirth; E66.9 Obesity, unspecified; O69.81X0 Labor and delivery complicated by cord around neck, without compression, not applicable or unspecified; O71.82 Other specified trauma to perineum and vulva; Z3A.39 39 weeks gestation of pregnancy; Z37.0 Single live birth; O99.344 Other mental disorders complicating childbirth; F32.9 Major depressive disorder, single episode, unspecified; O99.334 Smoking (tobacco) complicating childbirth; F17.200 Nicotine dependence, unspecified, uncomplicated; Z62.810 Personal history of physical and sexual abuse in childhood; Z91.018 Allergy to other foods; Z83.3 Family history of diabetes mellitus; Z82.49 Family history of ischemic heart disease and other diseases of the circulatory system; Z81.8 Family history of other mental and behavioral disorders

== ENCOUNTER 2017-07-04 01:09 | Emergency (ER) | payer OTHER ==
[~2017-07-04] VITALS: Ht 157.5 cm; Wt 99.3 kg
[~2017-07-04 01:09] MED LIST changes: -ACET-749 PO; +CALC500C3; +MTR600X PO
[2017-07-04 01:14] VITALS: TEMP 37.1; Ht 157.5 cm; Wt 99.3 kg
[2017-07-04] MEDS ORDERED: KETOROLAC TROMETHAMINE 30 MG/ML VIAL IV STA (01:47)
[2017-07-04 01:59] LABS: BASO % 0.5 %; BASO ABS # 0.06 K/uL (0-0.2); EOS % 2.5 %; EOS ABS # 0.31 K/uL (0-0.5); HEMATOCRIT 38.7 % (37-47); HEMOGLOBIN 12.6 g/dL (12.0-16.0); IG# 0.21 K/uL (0.00-0.02); LYMPH % 20.9 %; LYMPH ABS # 2.57 K/uL (1.2-3.4); MEAN CELL VOLUME 84.5 fL (80-100); MEAN CORPUSCULAR HEMOGLOBIN 27.5 pg (25-34); MEAN CORPUSCULAR HGB CONC 32.6 g/dl (32-36); MEAN PLATELET VOLUME 9.9 fL (7.4-10.4); MONO % 6.6 %; MONO ABS # 0.81 K/uL (0.11-0.59); NEUT % 67.8 %; NEUT ABS # 8.35 K/uL (1.4-6.5); PLATELET COUNT 292 K/uL (130-400); RED CELL DISTRIBUTION WIDTH CV 15.6 % (11.5-14.5); RED CELL DISTRIBUTION WIDTH SD 47.4 fL (36.4-46.3); WHITE BLOOD COUNT 12.31 K/uL (4.8-10.8)
[2017-07-04] MEDS ORDERED: SODIUM CHLORIDE 0.9% 1000ML 1,000 ML IV STA (02:04)
[2017-07-04 02:17] LABS: ALBUMIN 2.8 gm/dl (3.4-5.0); CALCIUM 9.2 mg/dl (8.5-10.1); CREATININE 0.99 mg/dl (0.60-1.20); POTASSIUM 4.3 mmol/L (3.5-5.1)
[2017-07-04 02:20] LABS: TOTAL PROTEIN 7.5 gm/dl (6.4-8.2)
--- NOTE | 2017-07-04 02:34 | EMERGENCY ROOM VISIT NOTE ---
History First contact with patient: :17 Chief Complaint: ABDOMINAL PAIN Stated Complaint: STOMACH PAIN, CONTRACTIONS, S/P History of Present Illness The patient is a 26 year old female who presents to the Emergency Room with complaints of lower abdominal pain. The patient reports that she was sitting on her couch 1 hour prior to arrival and developed severe pain in her lower abdomen. She states that the pain has improved slightly and is now a dull pain. She rates her discomfort as 7/10. The pain is across her lower abdomen. The patient had a normal vaginal delivery 7 days ago. She reports she has had some soreness and dysuria secondary to a laceration. She has had one episode of vomiting in the slightly nauseous. She has had prior appendectomy and denies any other abdominal issues. She reports she has been having normal bowel movements with the help of Dulcolax. She denies fever/chills. Review of Systems A complete 10 point review of systems was reviewed with the patient with pertinent positives and negatives as per history of present illness. All else were negative. Past Medical/Surgical History Medical Problems: (1) Acute bronchitis (2) Dysfunctional uterine bleeding (3) Elective induction of labor planned (4) Left ovarian cyst (5) Major depressive disorder with current active episode (6) (7) Sacroiliitis Family History Diabetes mellitus FHx: cancer FHx: heart disease Hypertension Social History Smoking Status: Current Every Day Smoker Alcohol Use: occasionally Drug Use: none Marital Status: in relationship Housing Status: lives with family Occupation Status: unemployed Current/Historical Medications Scheduled Multivit/Min/Iron/Fol Ac/Pren ( Vitamin), 1 TAB PO DAILY Scheduled PRN Ibuprofen (Ibuprofen), 600 MG PO Q4H PRN for PAIN, JOHNSON, CRAMPING OR FEVER Ondansetron Hcl (Zofran), 4 MG PO for Nausea Miscellaneous Medications Calcium Carbonate (Tums) Physical Exam Vital Signs Date Time Temp Pulse Resp B/P (MAP) Pulse Ox O2 Delivery O2 Flow Rate FiO2 07/04/17 04:20 86 16 134/79 97 Room Air 07/04/17 02:09 100 16 133/60 95 Room Air 07/04/17 01:14 37.1 98 20 134/81 97 Room Air Physical Exam VITALS: Vitals are noted on the nurse's note and reviewed by myself. Vital signs stable. GENERAL: This is a 26-year-old female, in no acute distress but appears uncomfortable, well-developed well-nourished. SKIN: The skin was without rashes. EARS: External auditory canals clear, tympanic membranes pearly acosta without erythema or effusion bilaterally. EYES: Pupils equal round and reactive to light and accommodation. MOUTH: Mucous membranes moist. Tonsils are not enlarged. Pharynx without erythema or exudate. HEART: Regular rate and rhythm without murmurs gallops or rubs. LUNGS: Clear to auscultation bilaterally without wheezes, rales or rhonchi. ABDOMEN: Positive bowel sounds x 4. Moderate tenderness to palpation noted across the lower abdomen. No guarding or rebound tenderness. PELVIC: External genitalia unremarkable. NEURO: Patient was alert and oriented to person place and time. Medical Decision & Procedures ER Provider Diagnostic Interpretation: US PELVIS: Enlarged, uterus measuring 17.9 x 8.1 x 9.6 cm. Trace fluid in the endometrial canal. No evidence of associated color Doppler flow in the endometrium. Shadowing echogenic foci within the endometrium may represent small gas foci. This may be related to status. Right ovary measures 1.9 x 3.1 x 1.7 cm. Left ovary measures 2.9 x 2.0 x 1.2 cm. Normal appearance of the ovaries with normal color Doppler flow. No free fluid. No adnexal mass. Radiologist: Nehal Mace M.D. Laboratory Results 07/04/17 01:50 Red Blood Count 4.58, Mean Corpuscular Volume 84.5, Mean Corpuscular Hemoglobin 27.5, Mean Corpuscular Hemoglobin Concent 32.6, Mean Platelet Volume 9.9, Neutrophils (%) (Auto) 67.8, Lymphocytes (%) (Auto) 20.9, Monocytes (%) (Auto) 6.6, Eosinophils (%) (Auto) 2.5, Basophils (%) (Auto) 0.5, Neutrophils # (Auto) 8.35, Lymphocytes # (Auto) 2.57, Monocytes # (Auto) 0.81, Eosinophils # (Auto) 0.31, Basophils # (Auto) 0.06 07/04/17 01:50 Test 07/04/17 01:50 07/04/17 02:00 White Blood Count 12.31 K/uL (4.8-10.8) Red Blood Count 4.58 M/uL (4.2-5.4) Hemoglobin 12.6 g/dL (12.0-16.0) Hematocrit 38.7 % (37-47) Mean Corpuscular Volume 84.5 fL (80-100) Mean Corpuscular Hemoglobin 27.5 pg (25-34) Mean Corpuscular Hemoglobin Concent 32.6 g/dl (32-36) Platelet Count 292 K/uL (130-400) Mean Platelet Volume 9.9 fL (7.4-10.4) Neutrophils (%) (Auto) 67.8 % Lymphocytes (%) (Auto) 20.9 % Monocytes (%) (Auto) 6.6 % Eosinophils (%) (Auto) 2.5 % Basophils (%) (Auto) 0.5 % Neutrophils # (Auto) 8.35 K/uL (1.4-6.5) Lymphocytes # (Auto) 2.57 K/uL (1.2-3.4) Monocytes # (Auto) 0.81 K/uL (0.11-0.59) Eosinophils # (Auto) 0.31 K/uL (0-0.5) Basophils # (Auto) 0.06 K/uL (0-0.2) RDW Standard Deviation 47.4 fL (36.4-46.3) RDW Coefficient of Variation 15.6 % (11.5-14.5) Immature Granulocyte % (Auto) 1.7 % Immature Granulocyte # (Auto) 0.21 K/uL (0.00-0.02) Anion Gap 8.0 mmol/L (3-11) Est Creatinine Clear Calc Drug Dose 94.9 ml/min Estimated GFR () 91.2 Estimated GFR (Non- 78.6 BUN/Creatinine Ratio 20.2 (10-20) Calcium Level 9.2 mg/dl (8.5-10.1) Total Bilirubin 0.2 mg/dl (0.2-1) Aspartate Amino Transf (AST/SGOT) 19 U/L (15-37) Alanine Aminotransferase (ALT/SGPT) 26 U/L (12-78) Alkaline Phosphatase 101 U/L (45-117) Total Protein 7.5 gm/dl (6.4-8.2) Albumin 2.8 gm/dl (3.4-5.0) Globulin 4.7 gm/dl (2.5-4.0) Albumin/Globulin Ratio 0.6 (0.9-2) Urine Color YELLOW Urine Appearance CLOUDY (CLEAR) Urine pH 6.0 (4.5-7.5) Urine Specific [place]ord 1.012 (1.000-1.030) Urine Protein NEG (NEG) Urine Glucose (UA) NEG (NEG) Urine Ketones NEG (NEG) Urine Occult Blood 3+ (NEG) Urine Nitrite NEG (NEG) Urine Bilirubin NEG (NEG) Urine Urobilinogen NEG (NEG) Urine Leukocyte Esterase LARGE (NEG) Urine WBC (Auto) >30 /hpf (0-5) Urine RBC (Auto) 5-10 /hpf (0-4) Urine Hyaline Casts (Auto) 0 /lpf (0-5) Urine Epithelial Cells (Auto) 20-30 /lpf (0-5) Urine Bacteria (Auto) NEG (NEG) Medications Administered Medications (Trade) Dose Ordered Sig/[place]ayito Route Start Time Stop Time Status Last Admin Dose Admin Ketorolac Tromethamine (Toradol Inj) 30 mg NOW STAT IV 07/04/17 01:47 07/04/17 01:49 DC 07/04/17 01:56 30 MG Sodium Chloride 1,000 ml @ 999 mls/hr Q1H1M STAT IV 07/04/17 02:04 07/04/17 03:04 DC 07/04/17 02:04 999 MLS/HR Medical Decision Differential diagnosis includes retained products of conception, urinary tract infection, endometritis, urinary tract infection, gastroenteritis, kidney stone , among others. The patient is a 26-year-old female who presents today complaining of lower abdominal pain. Patient is 1 week . Labs revealed minimal leukocytosis of 12.3. H&H stable, no concerning electrolyte abnormalities. Urinalysis appears suggestive of contamination with no bacteria, but will be sent for culture to rule out infection. Ultrasound was obtained and does not show any evidence of retained products of conception. Patient is afebrile. I do feel she is stable for discharge with close OB follow-up. Patient was advised to contact her MEDICAL TYPIST first thing in the morning to schedule a follow- up appointment. She will return here with any worsening pain, fevers or other new/concerning symptoms. The patient's case was reviewed with Dr. Berumen, ED attending physician, who agreed with my assessment and treatment plan. Based on the patient's presentation and work up, I feel the patient is stable for outpatient treatment. The patient was educated to return to the emergency department for any worsening of their current condition or new/concerning symptoms. She will follow up with her PCP. Medication Reconcilliation Current Medication List: was personally reviewed by me Blood Pressure Screening Patient's blood pressure: Normal blood pressure Impression Primary Impression: Suprapubic abdominal pain Departure Information Dispostion Home / Self-Care Condition GOOD Referrals Morales Santos, D.O. (PCP) Alvin Jessica MD Patient Instructions My [facility] Additional Instructions You have been treated in the Emergency Department for your Abdominal Pain. Laboratory results and imaging studies have ruled out any emergent causes for your abdominal pain which would warrant admission or surgery. For pain control, you can use the following [id number] medicines (if >12 yo): - Regular strength (325mg/tab) Tylenol (acetaminophen) 2 tabs every 4-6 hours as needed. Do not exceed 12 tablets in a 24 hour period. Avoid taking more than 4 grams (4000 mg) of Tylenol per day. This includes any other sources of acetaminophen you may take on a regular basis. - Regular strength (200 mg/tab) Advil (ibuprofen) 1-2 tabs every 4-6 hours as needed. Do not exceed a dose of 3200 mg per day. Drink plenty of water and stay well hydrated. Contact your MEDICAL TYPIST later today to schedule follow-up appointment. Return to the emergency department if your symptoms persist despite treatment plan outlined above or if the following symptoms occur: Worsening pain, vomiting , fevers, or any other new/concerning symptoms.
[2017-07-04 04:20] VITALS: BP 134/79; PULSE 86; O2SAT 97
--- NOTE | 2017-07-04 07:08 | DIAGNOSTIC IMAGING REPORT ---
PELVIC ULTRASOUND, TRANSABDOMINAL HISTORY: pelvic pain, recent vaginal delivery, pt refused transvag COMPARISON: ultrasound 10/25/2015. FINDINGS: The patient deferred transvaginal scanning. Uterus: 17.9 x 9.6 x 8.1 cm. Thickened and heterogeneous endometrium which contains a few small foci of gas. The endometrium measures up to 2.5 cm in thickness. No associated color flow within the endometrium. Right ovary: Normal in size and demonstrates normal color flow. Left ovary: Normal in size and demonstrates normal color flow. Miscellaneous:No pelvic free fluid. IMPRESSION: Enlarged uterus due to the patient's post gravid state. The endometrium is heterogeneous and thickened and contains a few small foci of gas. This could be due to the recent status. No color flow identified within the endometrium. Electronically signed by: Ryan Menendez M.D. 07/04/2017 7:07 AM Dictated Date/Time: 07/04/2017 7:04 AM
== END 2017-07-04 04:27 | disposition home or self-care (01) ==
LOC: C.EDB 01:11 → C.EDA 04:27
DX: R10.30 Lower abdominal pain, unspecified (principal); F17.210 Nicotine dependence, cigarettes, uncomplicated